=== PATIENT | male | born 1935 | race Caucasian/White ===

== ENCOUNTER → 2018-05-28 08:19 | Outpatient (CLI) | payer OTHER, SELFPAY ==
[2018-05-28 10:25] LABS: Add Manual Diff / Slide Review NO; Basophils Percent Auto 0.5 % (0-2); Eosinophils Percent Auto 1.3 % (2-4); Hematocrit 36.5 % (41-53); Hemoglobin 12.5 g/dL (13.5-17.5); Lymphocytes Percent Auto 24.5 % (25-40); Mean Corpuscular HGB Conc 34.3 % (30-36); Mean Corpuscular Hemoglobin 30.2 PG (26-34); Mean Corpuscular Volume 88.2 fL (80-100); Monocytes Percent Auto 8.2 % (3-14); Neutrophils Absolute Auto 5500 /uL (3000-5900); Neutrophils Percent Auto 65.5 % (50-75); Platelet Count 290 X10^3/uL (150-400); Red Blood Cell Count 4.14 X10^6/uL (4.5-5.9); Red Cell Distribution Width 14.1 % (11.6-14.8); White Blood Cell Count 8.4 X10^3/uL (4.5-11.0)
[2018-05-28 10:41] LABS: Hemoglobin A1C% w Est Avg Glu 6.5 % (4.0-6.0)
[2018-05-28 10:44] LABS: Blood Urea Nitrogen 76 mg/dL (9-20); Calcium 9.9 mg/dL (8.4-10.2); Carbon Dioxide 33 mmol/L (22-32); Chloride 91 mmol/L (98-107); Estimated Glomerular Filt Rate 18.1 mL/min (>60); Glucose 109 mg/dL (80-110); HEMOLYSIS < 15 (0-50); Potassium 3.5 mmol/L (3.4-5.1); Sodium 140 mmol/L (137-145)
== END ==
PROVIDERS: Family Provider Family Medicine; PCP Family Medicine; Visit Provider Family Medicine
DX: E11.9 Type 2 diabetes mellitus without complications (principal)
CPT/HCPCS: 36415; 80048; 83036; 85025

== ENCOUNTER → 2018-07-11 09:22 | Outpatient (CLI) | payer OTHER, SELFPAY ==
[2018-07-11 10:53] LABS: Blood Urea Nitrogen 46 mg/dL (9-20); Calcium 9.6 mg/dL (8.4-10.2); Carbon Dioxide 29 mmol/L (22-32); Chloride 99 mmol/L (98-107); Estimated Glomerular Filt Rate 27.4 mL/min (>60); Glucose 205 mg/dL (80-110); HEMOLYSIS < 15 (0-50); Potassium 4.2 mmol/L (3.4-5.1); Sodium 141 mmol/L (137-145)
== END ==
PROVIDERS: PCP Family Medicine; Visit Provider Family Medicine
DX: E11.9 Type 2 diabetes mellitus without complications (principal)
CPT/HCPCS: 36415; 80048

== ENCOUNTER → 2018-10-08 11:02 | Outpatient (CLI) | payer OTHER, SELFPAY ==
[2018-10-08 12:33] LABS: Alanine Aminotransferase 14 IU/L (21-72); Albumin 4.4 g/dL (3.5-5.0); Albumin Globulin Ratio 1.5 (1.0-2.8); Alkaline Phosphatase 84 U/L (38-126); Aspartate Aminotransferase 20 IU/L (17-59); BUN Creatinine Ratio 17.8 (6-22); Bilirubin Total 0.4 mg/dL (0.2-1.3); Blood Urea Nitrogen 41 mg/dL (9-20); Calcium 9.4 mg/dL (8.4-10.2); Carbon Dioxide 30 mmol/L (22-32); Chloride 100 mmol/L (98-107); Estimated Glomerular Filt Rate 27.4 mL/min (>60); Globulin 2.9 g/dL (1.7-4.1); Glucose 73 mg/dL (80-110); HEMOLYSIS < 15 (0-50); Potassium 3.9 mmol/L (3.4-5.1); Sodium 143 mmol/L (137-145); Total Protein 7.3 g/dL (6.3-8.2)
[2018-10-08 18:10] LABS: Hemoglobin A1C% w Est Avg Glu 5.9 % (4.0-6.0)
== END ==
PROVIDERS: PCP Family Medicine; Visit Provider Family Medicine
DX: E11.9 Type 2 diabetes mellitus without complications (principal); N17.9 Acute kidney failure, unspecified
CPT/HCPCS: 36415; 80053; 83036

== ENCOUNTER → 2018-10-30 10:30 | Outpatient (CLI) | payer OTHER, SELFPAY ==
[2018-10-30 12:00] LABS: Hematocrit 36.2 % (41-53); Hemoglobin 12.3 g/dL (13.5-17.5); Mean Corpuscular HGB Conc 33.9 % (30-36); Mean Corpuscular Hemoglobin 29.8 PG (26-34); Mean Corpuscular Volume 87.9 fL (80-100); Platelet Count 334 X10^3/uL (150-400); Red Blood Cell Count 4.12 X10^6/uL (4.5-5.9); Red Cell Distribution Width 14.5 % (11.6-14.8); White Blood Cell Count 7.8 X10^3/uL (4.5-11.0)
[2018-10-30 12:13] LABS: Alanine Aminotransferase 16 IU/L (21-72); Albumin 4.4 g/dL (3.5-5.0); Albumin Globulin Ratio 1.5 (1.0-2.8); Alkaline Phosphatase 106 U/L (38-126); Aspartate Aminotransferase 16 IU/L (17-59); BUN Creatinine Ratio 17.3 (6-22); Bilirubin Total 0.3 mg/dL (0.2-1.3); Blood Urea Nitrogen 38 mg/dL (9-20); Calcium 9.5 mg/dL (8.4-10.2); Carbon Dioxide 27 mmol/L (22-32); Chloride 100 mmol/L (98-107); Estimated Glomerular Filt Rate 28.9 mL/min (>60); Globulin 2.9 g/dL (1.7-4.1); Glucose 156 mg/dL (80-110); HEMOLYSIS < 15 (0-50); Potassium 4.2 mmol/L (3.4-5.1); Sodium 143 mmol/L (137-145); Total Protein 7.3 g/dL (6.3-8.2)
== END ==
PROVIDERS: Family Provider Family Medicine; PCP Family Medicine; Visit Provider Family Medicine
DX: E11.9 Type 2 diabetes mellitus without complications (principal)
CPT/HCPCS: 36415; 80053; 83036; 85027

== ENCOUNTER → 2019-01-22 07:46 | Outpatient (CLI) | payer OTHER, SELFPAY ==
[2019-01-22 08:51] LABS: Add Manual Diff / Slide Review NO; Basophils Absolute Auto 0 /uL (0-100); Basophils Percent Auto 0.4 % (0-2); Eosinophils Absolute Auto 100 /uL (0-450); Eosinophils Percent Auto 1.7 % (2-4); Hematocrit 39.9 % (41-53); Hemoglobin 13.1 g/dL (13.5-17.5); Lymphocytes Absolute Auto 1500 /uL (1100-4500); Lymphocytes Percent Auto 19.8 % (25-40); Mean Corpuscular HGB Conc 32.9 % (30-36); Mean Corpuscular Hemoglobin 28.9 PG (26-34); Monocytes Absolute Auto 500 /uL (0-900); Monocytes Percent Auto 6.5 % (3-14); Neutrophils Absolute Auto 5200 /uL (1500-7000); Neutrophils Percent Auto 71.6 % (50-75); Platelet Count 258 X10^3/uL (150-400); Red Blood Cell Count 4.53 X10^6/uL (4.5-5.9); Red Cell Distribution Width 14.9 % (11.6-14.8); White Blood Cell Count 7.3 X10^3/uL (4.5-11.0)
[2019-01-22 09:01] LABS: Hemoglobin A1C% w Est Avg Glu 6.2 % (4.0-6.0)
[2019-01-22 09:29] LABS: Alanine Aminotransferase 22 IU/L (21-72); Albumin 4.3 g/dL (3.5-5.0); Albumin Globulin Ratio 1.5 (1.0-2.8); Alkaline Phosphatase 100 U/L (38-126); Aspartate Aminotransferase 15 IU/L (17-59); BUN Creatinine Ratio 20.5 (6-22); Bilirubin Total 0.5 mg/dL (0.2-1.3); Blood Urea Nitrogen 45 mg/dL (9-20); Calcium 9.7 mg/dL (8.4-10.2); Carbon Dioxide 28 mmol/L (22-32); Chloride 102 mmol/L (98-107); Estimated Glomerular Filt Rate 28.8 mL/min (>60); Globulin 2.8 g/dL (1.7-4.1); Glucose 149 mg/dL (80-110); HEMOLYSIS < 15 (0-50); Potassium 3.8 mmol/L (3.4-5.1); Sodium 141 mmol/L (137-145); Total Protein 7.1 g/dL (6.3-8.2)
== END ==
PROVIDERS: Family Provider Family Medicine; PCP Family Medicine; Visit Provider Family Medicine
DX: E11.9 Type 2 diabetes mellitus without complications (principal); I10 Essential (primary) hypertension; N18.3 Chronic kidney disease, stage 3 (moderate)
CPT/HCPCS: 36415; 80053; 83036; 85025

== ENCOUNTER → 2019-04-24 07:40 | Outpatient (CLI) | payer OTHER, SELFPAY ==
[2019-04-24 08:32] LABS: Hemoglobin A1C% w Est Avg Glu 6.1 % (4.0-6.0)
[2019-04-24 08:49] LABS: BUN Creatinine Ratio 20.8 (6-22); Blood Urea Nitrogen 52 mg/dL (9-20); Calcium 9.7 mg/dL (8.4-10.2); Carbon Dioxide 29 mmol/L (22-32); Chloride 102 mmol/L (98-107); Estimated Glomerular Filt Rate 24.8 mL/min (>60); Glucose 148 mg/dL (80-110); HEMOLYSIS < 15 (0-50); Sodium 141 mmol/L (137-145)
== END ==
PROVIDERS: PCP Family Medicine; Visit Provider Family Medicine
DX: E11.9 Type 2 diabetes mellitus without complications (principal)
CPT/HCPCS: 36415; 80048; 83036

== ENCOUNTER 2019-07-21 16:28 | Emergency (ER) | payer OTHER, SELFPAY ==
[2019-07-21 16:35] VITALS: BP 170/80; PULSE 60; RESP 21; TEMP 36.6; O2SAT 93
--- NOTE | 2019-07-21 16:35 | DI.RAD.S_ITS ---
PROCEDURE: XR CHEST 1V INDICATIONS: chest pain TECHNIQUE: One view of the chest was acquired. COMPARISON: [facility], CHEST 2 VIEW, 11/27/2015, 10:01. [facility], CHEST 1 VIEW, 09/25/2016, 11:39. [facility], CHEST 2 VIEW, 09/26/2016, 15:19. [facility], CHEST 1 VIEW, 11/13/2016, 1:33. FINDINGS: Surgical changes and devices: A pacer device is seen. The leads are seen in stable positions. Lungs and pleura: Lungs are clear. No pleural effusions or pneumothorax. Mediastinum: Mediastinal contours appear normal. Heart size is normal. Atherosclerotic calcification of the aortic arch is noted. Bones and chest wall: Age-appropriate bony degenerative changes are seen. No suspicious bony lesions. Overlying soft tissues appear unremarkable. IMPRESSION: Portable chest within normal limits. Postoperative and degenerative changes are seen. Dictated by: Juan Sequeira M.D. on 07/21/2019 at 16:09 Approved by: Juan Sequeira M.D. on 07/21/2019 at 16:10
[2019-07-21 16:42] LABS: Add Manual Diff / Slide Review NO; Basophils Absolute Auto 0 /uL (0-100); Basophils Percent Auto 0.4 % (0-2); Eosinophils Absolute Auto 200 /uL (0-450); Eosinophils Percent Auto 1.8 % (2-4); Hematocrit 40.7 % (41-53); Hemoglobin 13.8 g/dL (13.5-17.5); Lymphocytes Absolute Auto 2300 /uL (1100-4500); Lymphocytes Percent Auto 24.8 % (25-40); Mean Corpuscular HGB Conc 33.9 % (30-36); Mean Corpuscular Hemoglobin 29.9 PG (26-34); Mean Corpuscular Volume 88.2 fL (80-100); Monocytes Absolute Auto 600 /uL (0-900); Monocytes Percent Auto 6.6 % (3-14); Neutrophils Absolute Auto 6200 /uL (1500-7000); Neutrophils Percent Auto 66.4 % (50-75); Platelet Count 247 X10^3/uL (150-400); Red Blood Cell Count 4.62 X10^6/uL (4.5-5.9); Red Cell Distribution Width 14.5 % (11.6-14.8); White Blood Cell Count 9.3 X10^3/uL (4.5-11.0)
[2019-07-21 16:43] LABS: INR 0.9 (0.9-1.3); Prothrombin Time 10.8 SECONDS (10.1-12.7)
[2019-07-21 16:46] LABS: PTT Partial Thromboplastin Tim 35 SECONDS (26.4-36.2)
--- NOTE | 2019-07-21 16:59 | ED_ITS ---
HPI - Dizziness <Chey DamicoDENISE - Last Filed: 07/21/19 21:19> General Chief Complaint: Dizziness Stated Complaint: N/V, hx vertigo Time Seen by Provider: 07/21/19 16:36 Source: patient Mode of arrival: ambulatory Limitations: no limitations History of Present Illness HPI Narrative: 83-year-old male with history of a pacemaker, diabetes, dementia, CKD, and an inguinal hernia, presents emergency department today with his who states he started complaining of feeling ?like the room was moving ?last night. He had 1 episode of vomiting last night and has had multiple episodes of vomiting today. He currently lives at home with his who is his gis analyst developer. She states he has not been febrile, has not complained of abdominal pain, there has been no diarrhea, his mentation status has been baseline (AOx2), she states his speech has been baseline without slurred words, patient has been able to use all extremities without weakness to her knowledge, and she has not noticed any facial droop, he is able to follow commands, and she denies any recent falls in the past week. She states he has had an episode of vertigo in the past and he has exhibited similar symptoms. She denies any sick contacts. Patient is able to follow simple commands, he denies chest pain, shortness of breath, abdominal pain, or syncope. Related Data Home Medications Medication Instructions Recorded Confirmed CHOLECALCIFEROL (VITAMIN D3) 2,000 iu PO Q DAY #0 12/23/11 05/07/19 (Vitamin D) Fish Oil 1,000 mg PO QDAY #0 05/01/12 05/07/19 CA PANTOTHENATE/FOLIC ACID/VIT 1 tab PO QDAY #0 12/24/12 05/07/19 (MULTIVITAMIN) folic acid 400 mcg tablet 0.4 mg PO DAILY 06/12/18 05/07/19 Previous Rx's Medication Instructions Recorded Meclizine Hydrochloride 25 mg PO TIDP PRN #30 03/11/12 (#MECLIZINE) ramelteon 8 mg tablet 4 mg PO HS #20 tab 06/12/18 omeprazole 20 mg PO QDAY #30 cap 10/29/18 glucose home monitoring kit See Rx Instructions .ROUTE 11/05/18 .COMPLEX #1 each insulin NPH isoph U-100 human 100 20 unit SUBCUT QAM #15 ml 11/05/18 unit/mL (3 mL) subcutaneous pen needle (disp) 30 gauge 30 gauge x #100 each 11/05/18 1/2 lisinopril 20 mg PO BID #180 tab 12/10/18 One Touch Verio test strips See Rx Instructions .ROUTE 01/10/19 .COMPLEX #100 each lancets 33 gauge #100 each 01/10/19 furosemide 20 mg tablet 20 mg PO DAILY #90 tab 02/22/19 furosemide 40 mg PO QDAY #90 tab 03/18/19 tamsulosin 0.4 mg capsule 0.4 mg PO Q DAY #90 cap 04/25/19 DISABLED PARKING PERMIT #1 each 05/07/19 ondansetron HCl [Zofran] 4 mg PO Q8-12H PRN #7 tab 07/21/19 Allergies Allergy/AdvReac Type Severity Reaction Status Date / Time niacin Allergy Mild HOT Verified 07/21/19 16:40 FLASHES/REDNESS rosuvastatin Allergy Mild CRAMPS, Verified 07/21/19 16:40 DIARRHEA Review of Systems <DENISE Luna - Last Filed: 07/21/19 21:19> Review of Systems Narrative: REVIEW OF SYSTEMS: GENERAL: Denies fever. HENT: No head trauma. EYES: No loss of vision. CARDIOVASCULAR: No chest pain, palpitations, edema, or syncope. RESPIRATORY: No shortness of breath, cough, or wheeze. GASTROINTESTINAL: states patient vomited, see HPI. GENITOURINARY: No dysuria. MUSCULOSKELETAL: No pain, weakness, or deformities. INTEGUMENTARY: No rash, lesions, or pruritus. NEURO: No numbness, tingling, or headaches. No facial droop or weakness. Complains of vertigo, see HPI. PSYCH: No behavior or mood changes. PFSH <DENISE Luna - Last Filed: 07/21/19 21:19> Medical History BPH (benign prostatic hyperplasia) (Chronic) Cardiac arrhythmia (Chronic) Dementia (Chronic ~2012) Diabetes mellitus (Chronic) GERD (gastroesophageal reflux disease) (Chronic) Hearing loss (Chronic) Hyperlipidemia (Chronic) Hypertension (Chronic) Rheumatoid arthritis (Chronic) Vertigo (Chronic ~2010) Surgical History Anesthesia (Resolved) History of knee replacement (~2011) History of knee replacement (~2012) Presence of cardiac pacemaker (~2009) Status post tonsillectomy and adenoidectomy Family History Brother Alzheimer's disease Brother Heart disease Father Aneurysm Social History marital status: Smoking Status: Former smoker alcohol intake: never substance use type: does not use Family History Brother Alzheimer's disease Brother Heart disease Father Aneurysm Social History marital status: Smoking Status: Former smoker alcohol intake: never substance use type: does not use Exam <DENISE Luna - Last Filed: 07/21/19 21:19> Initial Vital Signs Initial Vital Signs: Vital Signs Temperature 97.9 F 07/21/19 16:35 Pulse Rate 60 07/21/19 16:35 Respiratory Rate 21 07/21/19 16:35 Blood Pressure 170/80 H 07/21/19 16:35 Pulse Oximetry 93 07/21/19 16:35 PHYSICAL EXAMINATION: GENERAL: Alert and oriented x2, patient is not able to recall the the date or situation but is able to identify his name and his . His states that this is his baseline. Vital signs noted. HENT: Normocephalic, atraumatic. Ear canals patent, tympanic membranes normal without irritation or effusion, crisp light reflex present. Oral mucosa is pink and moist, no caries or lesions present. Pharynx without erythema. EYES: PERRLA, EOMIs, conjunctiva pink, sclera white, no periorbital swelling. left-sided horizontal nystagmus noted 1 patient looked to his left. CARDIOVASCULAR: S1 and S2 heard. Significant murmur present, patient is paced. RESPIRATORY: Normal respiratory rate, trachea midline, airway patent. No stridor, nasal flaring or accessory muscle use. Lungs are clear in all soriano without wheeze, rhonchi, or crackles. GASTROINTESTINAL: Bowel sounds normoactive. Abdomen is soft and non-tender. No organomegaly. MUSCULOSKELETAL: Equal strength to upper extremities. Patient was able to ambulate normally after administration of meclizine and Zofran. EXTREMITIES: CMS intact. SKIN: Warm, dry, soft, appropriate color for ethnicity. No lesions, rashes, or wounds. NEURO: Alert and Oriented X 2. Patient was able to follow simple commands, states is his baseline. CN III-XII grossly intact. It was difficult to determine if the Brielle-Hallpike maneuver aggravated symptoms as patient was a fairly poor historian. NIH score of zero (other than decreased orientation status, but says this is his baseline.) PSYCH: Appropriate affect and mood. <Pablito Pradhan DO - Last Filed: 07/22/19 07:34> Initial Vital Signs Initial Vital Signs: Vital Signs Temperature 97.9 F 07/21/19 16:35 Pulse Rate 60 07/21/19 16:35 Respiratory Rate 21 07/21/19 16:35 Blood Pressure 170/80 H 07/21/19 16:35 Pulse Oximetry 93 07/21/19 16:35 Scores <DENISE Luna - Last Filed: 07/21/19 21:19> NIH Stroke Scale Level of Conciousness: Alert, keenly responsive Open/close eyes, close hand: Performs both tasks correctly Best gaze horizontal: Normal Visual soriano: No visual loss Facial palsy: Normal symetrical movement Left arm drift: No drift for full 10 sec Right arm drift: No drift for full 10 sec Left leg drift: No drift for full 10 sec Right leg drift: No drift for full 10 sec Limb ataxia: Absent Sensory on face/arms/legs: Normal, no sensory loss Best language: No aphasia, normal Dysarthria: Normal Extinction or inattention: No abnormality Course <DENISE Luna - Last Filed: 07/21/19 21:19> Course Course Narrative: After patient was given Zofran, fluids, and meclizine, he was significantly more alert and was able to ambulate without nausea or vomiting. His stated he is looking much better and they would like to go. Orders Ordered: Discontinued Medications Sodium Chloride (Normal Saline 0.9%) 1,000 mls @ 500 mls/hr IV BOLUS ONE Stop: 07/21/19 18:53 Last Infusion: 07/21/19 18:49 Dose: 0 mls/hr Documented by: Admin: 07/21/19 17:13 Dose: 500 mls/hr Documented by: BECK Meclizine HCl (Antivert) 25 mg PO NOW ONE Stop: 07/21/19 16:55 Last Admin: 07/21/19 17:14 Dose: 25 mg Documented by: BECK Ondansetron HCl (Zofran) 4 mg IV NOW ONE Stop: 07/21/19 16:55 Last Admin: 07/21/19 17:13 Dose: 4 mg Documented by: BECK Reevaluation(s) Reevaluation #1: Patient improved after medication as stated above. Consultations Consultation #1: Patient staffed with Dr. Pradhan. Vital Signs Vital signs: Vital Signs - 8 hr 07/21/19 16:35 07/21/19 17:30 07/21/19 19:07 Temperature 97.9 F Pulse Rate 60 60 60 Respiratory Rate 21 17 17 Blood Pressure 170/80 H 157/72 H Blood Pressure [Left Arm] 152/75 H Pulse Oximetry 93 95 <Pablito Pradhan, - Last Filed: 07/22/19 07:34> Orders Ordered: Discontinued Medications Sodium Chloride (Normal Saline 0.9%) 1,000 mls @ 500 mls/hr IV BOLUS ONE Stop: 07/21/19 18:53 Last Infusion: 07/21/19 18:49 Dose: 0 mls/hr Documented by: Admin: 07/21/19 17:13 Dose: 500 mls/hr Documented by: BECK Meclizine HCl (Antivert) 25 mg PO NOW ONE Stop: 07/21/19 16:55 Last Admin: 07/21/19 17:14 Dose: 25 mg Documented by: BECK Ondansetron HCl (Zofran) 4 mg IV NOW ONE Stop: 07/21/19 16:55 Last Admin: 07/21/19 17:13 Dose: 4 mg Documented by: BECK Vital Signs Vital signs: Vital Signs - 8 hr 07/21/19 16:35 07/21/19 17:30 07/21/19 19:07 Temperature 97.9 F Pulse Rate 60 60 60 Respiratory Rate 21 17 17 Blood Pressure 170/80 H 157/72 H Blood Pressure [Left Arm] 152/75 H Pulse Oximetry 93 95 MDM - Dizziness <Chey Damico TIMBER TREATING TANK OPERATOR - Last Filed: 07/21/19 21:19> Medical Records Attestation: I reviewed the patient's medical records. Lab Data Attestation: I reviewed the patient's lab results. Result diagrams: 07/21/19 16:30 07/21/19 16:30 Labs: Lab Results 07/21/19 07/21/19 07/21/19 Range/Units 16:30 16:30 16:30 WBC 9.3 (4.5-11.0) X10^3/uL RBC 4.62 (4.5-5.9) X10^6/uL Hgb 13.8 (13.5-17.5) g/dL Hct 40.7 L (41-53) % MCV 88.2 (80-100) fL MCH 29.9 (26-34) PG MCHC 33.9 (30-36) % RDW 14.5 (11.6-14.8) % Plt Count 247 (150-400) X10^3/uL Neut % (Auto) 66.4 (50-75) % Lymph % (Auto) 24.8 L (25-40) % Donley % (Auto) 6.6 (3-14) % Eos % (Auto) 1.8 L (2-4) % Baso % (Auto) 0.4 (0-2) % Neut # (Auto) 6200 (2888-9468) /uL Lymph # (Auto) 2300 (0407-8336) /uL Donley # (Auto) 600 (0-900) /uL Eos # (Auto) 200 (0-450) /uL Baso # (Auto) 0 (0-100) /uL PT 10.8 (10.1-12.7) SECONDS INR 0.9 (0.9-1.3) APTT 35 (26.4-36.2) SECONDS Sodium 143 (137-145) mmol/L Potassium 3.3 L (3.4-5.1) mmol/L Chloride 104 (98-107) mmol/L Carbon Dioxide 23 (22-32) mmol/L BUN 45 H (9-20) mg/dL Creatinine 2.20 H (0.66-1.25) mg/dL Estimated GFR 28.8 L (>60) mL/min BUN/Creatinine Ratio 20.5 (6-22) Glucose 117 H (80-110) mg/dL Calcium 9.3 (8.4-10.2) mg/dL Total Bilirubin 0.5 (0.2-1.3) mg/dL AST 19 (17-59) IU/L ALT 9 L (21-72) IU/L Alkaline Phosphatase 128 H (38-126) U/L Total Creatine Kinase 29 L (55-170) U/L CK-MB (CK-2) TNP CK-MB (CK-2) Rel Index TNP Troponin I < 0.012 (0.01-0.034) ng/mL Total Protein 7.5 (6.3-8.2) g/dL Albumin 4.4 (3.5-5.0) g/dL Globulin 3.1 (1.7-4.1) g/dL Albumin/Globulin Ratio 1.4 (1.0-2.8) Lipase 40 (23-300) U/L Imaging Data Chest x-ray: Radiologist's impression: [place] [address] XRay Report Signed Patient: Harpal Lezama RMR#: [id number] : 6Acct:[id number] Age/Sex: 83 / MDate of Service: 07/21/19 Loc: ED Accession Number: [id number] Procedure: XR chest 1V Ordering Provider: Pablito Pradhan D.O. PROCEDURE: XR CHEST 1V INDICATIONS: chest pain TECHNIQUE: One view of the chest was acquired. COMPARISON: [facility], CHEST 2 VIEW, 11/27/2015, 10:01. [facility], CHEST 1 VIEW, 09/25/2016, 11:39. [facility], CHEST 2 VIEW, 09/26/2016, 15:19. [facility], CHEST 1 VIEW, 11/13/2016, 1:33. FINDINGS: Surgical changes and devices: A pacer device is seen. The leads are seen in stable positions. Lungs and pleura: Lungs are clear. No pleural effusions or pneumothorax. Mediastinum: Mediastinal contours appear normal. Heart size is normal. Atherosclerotic calcification of the aortic arch is noted. Bones and chest wall: Age-appropriate bony degenerative changes are seen. No suspicious bony lesions. Overlying soft tissues appear unremarkable. IMPRESSION: Portable chest within normal limits. Postoperative and degenerative changes are seen. Dictated by: Juan Sequeira M.D. on 07/21/2019 at 16:09 Approved by: Juan Sequeira M.D. on 07/21/2019 at 16:10 ECG Data Interpretation: Paced rhythm noted on EKG. Rate 61, pr interval 180, QTC 529. Wide QRS complexes noted, no ST elevation present. EKG was also viewed by Dr. Pradhan. MDM Narrative Medical decision making narrative: Differential includes vertigo (most likely as patient's symptoms resolved completely after administration of medication, reassuring lab, no significant changes were visible on the EKG, NIH score of 0), stroke (less likely due to NIH score of 0, resolution of symptoms, lack of weakness, lack of other concerning symptoms), cardiac disease (less likely due to negative troponin, lack of change in the EKG, and the fact that patient has a pacemaker issues like bradycardia), or gastroenteritis. Very strict return precautions were given to his who is his competent caregiver. Follow-up instructions discussed. <Pablito Pradhan, DO - Last Filed: 07/22/19 07:34> Lab Data Labs: Lab Results 07/21/19 07/21/19 07/21/19 Range/Units 16:30 16:30 16:30 WBC 9.3 (4.5-11.0) X10^3/uL RBC 4.62 (4.5-5.9) X10^6/uL Hgb 13.8 (13.5-17.5) g/dL Hct 40.7 L (41-53) % MCV 88.2 (80-100) fL MCH 29.9 (26-34) PG MCHC 33.9 (30-36) % RDW 14.5 (11.6-14.8) % Plt Count 247 (150-400) X10^3/uL Neut % (Auto) 66.4 (50-75) % Lymph % (Auto) 24.8 L (25-40) % Donley % (Auto) 6.6 (3-14) % Eos % (Auto) 1.8 L (2-4) % Baso % (Auto) 0.4 (0-2) % Neut # (Auto) 6200 (9993-2529) /uL Lymph # (Auto) 2300 (5845-3903) /uL Donley # (Auto) 600 (0-900) /uL Eos # (Auto) 200 (0-450) /uL Baso # (Auto) 0 (0-100) /uL PT 10.8 (10.1-12.7) SECONDS INR 0.9 (0.9-1.3) APTT 35 (26.4-36.2) SECONDS Sodium 143 (137-145) mmol/L Potassium 3.3 L (3.4-5.1) mmol/L Chloride 104 (98-107) mmol/L Carbon Dioxide 23 (22-32) mmol/L BUN 45 H (9-20) mg/dL Creatinine 2.20 H (0.66-1.25) mg/dL Estimated GFR 28.8 L (>60) mL/min BUN/Creatinine Ratio 20.5 (6-22) Glucose 117 H (80-110) mg/dL Calcium 9.3 (8.4-10.2) mg/dL Total Bilirubin 0.5 (0.2-1.3) mg/dL AST 19 (17-59) IU/L ALT 9 L (21-72) IU/L Alkaline Phosphatase 128 H (38-126) U/L Total Creatine Kinase 29 L (55-170) U/L CK-MB (CK-2) TNP CK-MB (CK-2) Rel Index TNP Troponin I < 0.012 (0.01-0.034) ng/mL Total Protein 7.5 (6.3-8.2) g/dL Albumin 4.4 (3.5-5.0) g/dL Globulin 3.1 (1.7-4.1) g/dL Albumin/Globulin Ratio 1.4 (1.0-2.8) Lipase 40 (23-300) U/L Discharge Plan Departure Patient Disposition: Home Clinical Impression: Nausea, Vertigo Discharge Date/Time: 07/21/19 19:08 Instructions: DI for Vertigo Activity Restrictions/Additional Instructions: Thank you for entrusting me with your care today. As discussed, your lab work is negative for any concerning findings. It is possible that the dizziness and vomiting may be caused by vertigo. I prescribed you a medication to take for the next few days in case vomiting occurs again. Please follow-up with her primary care provider in the next week. Return to the emergency department if he develops facial droop, slurred speech, chest pain, uncontrollable vomiting, shortness of breath, abdominal pain, or other concerning symptoms. Prescriptions: New ondansetron HCl [Zofran] 4 mg tablet 4 mg PO Q8-12H PRN (Reason: nausea and vomiting) Qty: 7 RF: 0 No Action (DME) DISABLED PARKING PERMIT 0 .ROUTE .MEDSUPPLY Qty: 1 RF: 0 CHOLECALCIFEROL (VITAMIN D3) (Vitamin D) 2,000 iu PO Q DAY Qty: 0 RF: 0 Meclizine Hydrochloride (#MECLIZINE) 25 mg PO TIDP PRNQty: 30 RF: 1 Fish Oil 1,000 mg PO QDAY Qty: 0 RF: 0 CA PANTOTHENATE/FOLIC ACID/VIT (MULTIVITAMIN) 1 tab PO QDAY Qty: 0 RF: 0 omeprazole 20 mg capsule,delayed release(DR/EC) 20 mg PO QDAY Qty: 30 RF: 11 insulin NPH isoph U-100 human [Humulin N NPH Insulin KwikPen] 100 unit/mL (3 mL) insulin pen 20 unit SUBCUT QAM Qty: 15 RF: 3 (DME) needle (disp) 30 gauge [BD Specialty Use [place]] 30 gauge x 1/2 needle See Dose Instructions .ROUTE .MEDSUPPLY Qty: 100 RF: 5 lisinopril 20 mg tablet 20 mg PO BID Qty: 180 RF: 3 (DME) lancets [OneTouch Delica Lancets] 33 gauge misc See Dose Instructions .ROUTE .MEDSUPPLY Qty: 100 RF: 3 One Touch Verio test strips See Rx Instructions .ROUTE .COMPLEX Qty: 100 RF: 5 furosemide 20 mg tablet 20 mg PO DAILY Qty: 90 RF: 0 furosemide 40 mg tablet 40 mg PO QDAY Qty: 90 RF: 3 tamsulosin [Flomax] 0.4 mg capsule 0.4 mg PO Q DAY Qty: 90 RF: 3 glucose home monitoring kit See Rx Instructions .ROUTE .COMPLEX Qty: 1 RF: 0 folic acid 400 mcg tablet 0.4 mg PO DAILY RF: 0 ramelteon [Rozerem] 8 mg tablet 4 mg PO HS Qty: 20 RF: 3 Referrals: Tobi Sheldon MD [Primary Care Provider] - <Pablito Pradhan DO - Last Filed: 07/22/19 07:34> Sign Out Provider Sign Out Attestation: I was available for consultation during this patient's emergency department encounter
[2019-07-21 17:02] LABS: Alanine Aminotransferase 9 IU/L (21-72); Albumin 4.4 g/dL (3.5-5.0); Albumin Globulin Ratio 1.4 (1.0-2.8); Alkaline Phosphatase 128 U/L (38-126); Aspartate Aminotransferase 19 IU/L (17-59); BUN Creatinine Ratio 20.5 (6-22); Bilirubin Total 0.5 mg/dL (0.2-1.3); Blood Urea Nitrogen 45 mg/dL (9-20); Calcium 9.3 mg/dL (8.4-10.2); Carbon Dioxide 23 mmol/L (22-32); Chloride 104 mmol/L (98-107); Creatine Kinase 29 U/L (55-170); Estimated Glomerular Filt Rate 28.8 mL/min (>60); Globulin 3.1 g/dL (1.7-4.1); Glucose 117 mg/dL (80-110); HEMOLYSIS 25 (0-50); Lipase 40 U/L (23-300); Potassium 3.3 mmol/L (3.4-5.1); Sodium 143 mmol/L (137-145); Total Protein 7.5 g/dL (6.3-8.2)
[2019-07-21 17:13] LABS: Troponin I < 0.012 ng/mL (0.01-0.034)
[2019-07-21] MEDS: SODIUM CHLORIDE 0.9% 1,000 ML 500 ML IV (17:13)
[2019-07-21] MEDS: ONDANSETRON 4 MG/2 ML INJ IV (17:13)
[2019-07-21] MEDS: MECLIZINE HCL 12.5 MG TABLET 25 MG PO (17:14)
[2019-07-21 17:30] VITALS: BP 152/75; PULSE 60; RESP 17
[2019-07-21 19:07] VITALS: BP 157/72; PULSE 60; RESP 17; O2SAT 95
== END 2019-07-21 19:08 | disposition home or self-care (01) ==
PROVIDERS: Emergency Medicine; Emergency Provider Nurse Practitioner; PCP Family Medicine
DX: R42 Dizziness and giddiness (principal); R11.0 Nausea
CPT/HCPCS: 36591; 71045; 80053; 82550; 83690; 84484; 85025; 85610; 85730; 93005; 96361; 96374; 99283; 99285; J2405

== ENCOUNTER → 2019-10-22 08:14 | Outpatient (CLI) | payer OTHER, SELFPAY ==
[2019-10-22 09:45] LABS: Hemoglobin 13.2 g/dL (13.5-17.5); Mean Corpuscular HGB Conc 33.7 % (30-36); Mean Corpuscular Hemoglobin 29.7 PG (26-34); Mean Corpuscular Volume 88.1 fL (80-100); Platelet Count 235 X10^3/uL (150-400); Red Blood Cell Count 4.43 X10^6/uL (4.5-5.9); Red Cell Distribution Width 14.2 % (11.6-14.8); White Blood Cell Count 6.8 X10^3/uL (4.5-11.0)
[2019-10-22 10:11] LABS: Alanine Aminotransferase 11 IU/L (<50); Albumin 4.1 g/dL (3.5-5.0); Albumin Globulin Ratio 1.5 (1.0-2.8); Alkaline Phosphatase 111 U/L (38-126); Aspartate Aminotransferase 17 IU/L (17-59); BUN Creatinine Ratio 18.2 (6-22); Bilirubin Total 0.7 mg/dL (0.2-1.3); Blood Urea Nitrogen 40 mg/dL (9-20); Calcium 9.2 mg/dL (8.4-10.2); Carbon Dioxide 26 mmol/L (22-32); Chloride 105 mmol/L (98-107); Cholesterol 219 mg/dL (140-199); Estimated Glomerular Filt Rate 28.8 mL/min (>60); Globulin 2.8 g/dL (1.7-4.1); Glucose 133 mg/dL (80-110); HDL Cholesterol 22 mg/dL (40-60); HEMOLYSIS < 15 (0-50); LDL Cholesterol Calculated 143 mg/dL (<100); Potassium 3.8 mmol/L (3.4-5.1); Sodium 140 mmol/L (137-145); Total Protein 6.9 g/dL (6.3-8.2); Triglycerides 268 mg/dL (35-150)
[2019-10-22 10:25] LABS: Neutrophils Absolute Manual 4556 /uL (3000-5900); Total Cells Counted 100
[2019-10-22 10:26] LABS: RBC Morphology Normal Morphology
[2019-10-22 10:40] LABS: TSH w/ Reflex to FT4 0.49 uIU/mL (0.47-4.68)
== END ==
PROVIDERS: PCP Family Medicine; Visit Provider Family Medicine
DX: E11.9 Type 2 diabetes mellitus without complications (principal); I10 Essential (primary) hypertension; N18.3 Chronic kidney disease, stage 3 (moderate)
CPT/HCPCS: 36415; 80053; 80061; 84443; 85025

== ENCOUNTER 2020-03-26 20:43 | Emergency (ER) | payer OTHER, SELFPAY ==
[2020-03-26 20:43] VITALS: BP 169/85; PULSE 61; RESP 14; O2SAT 95; BMI 27.3
--- NOTE | 2020-03-26 20:44 | DI.RAD.S_ITS ---
PROCEDURE: XR ACUTE ABDOMEN SERIES INDICATIONS: Abdominal pain, vomiting TECHNIQUE: One view chest and two views of the abdomen were acquired. COMPARISON: None. FINDINGS: Surgical changes and devices: Left pacemaker with right atrial and right ventricular leads. Chest: Lungs are clear. Heart size is normal. No pleural effusions. No obvious pneumoperitoneum. Abdomen: Large volume of stool in the rectal vault. Increased stool in other portions of the colon. No dilated loops of small bowel identified. No suspicious calcifications. Bones: No suspicious bony lesions. IMPRESSION: 1. No acute cardiopulmonary abnormality. 2. Large volume of stool, particularly at the rectal vault. This could be seen in fecal impaction. Dictated by: Rayo Carlson M.D. on 03/26/2020 at 22:07 Approved by: Rayo Carlson M.D. on 03/26/2020 at 22:09
--- NOTE | 2020-03-26 20:46 | ED_ITS ---
HPI - Nausea/Vomiting/Diarrhea General Chief complaint: Nausea/Vomiting/Diarrhea Stated complaint: Nausea/Vomiting Time Seen by Provider: 03/26/20 20:43 Source: family and EMS Mode of arrival: EMS Limitations: no limitations History of Present Illness HPI Narrative: 84-year-old male former smoker with history of pacemaker and dementia presents by EMS due to multiple episodes of vomiting earlier today. The patient has dementia and lives at home with his and had multiple episodes of vomiting today, largely triggered by change in position. He did not have any reported abdominal pain nor dysuria, frequency or urgency. He has had no fever or chills. He has had episodes of vomiting associated with vertigo in the past. He has had no recent injuries or falls. He has had no recent changes in medications. Patient is a very poor historian and much of the story comes from his Related Data Home Medications Medication Instructions Recorded Confirmed CHOLECALCIFEROL (VITAMIN D3) 2,000 iu PO Q DAY #0 12/23/11 11/06/19 (Vitamin D) Fish Oil 1,000 mg PO QDAY #0 05/01/12 11/06/19 CA PANTOTHENATE/FOLIC ACID/VIT 1 tab PO QDAY #0 12/24/12 11/06/19 (MULTIVITAMIN) folic acid 400 mcg tablet 0.4 mg PO DAILY 06/12/18 11/06/19 Previous Rx's Medication Instructions Recorded glucose home monitoring kit See Rx Instructions .ROUTE 11/05/18 .COMPLEX #1 each One Touch Verio test strips See Rx Instructions .ROUTE 01/10/19 .COMPLEX #100 each tamsulosin 0.4 mg capsule 0.4 mg PO Q DAY #90 cap 04/25/19 DISABLED PARKING PERMIT #1 each 05/07/19 insulin NPH isoph U-100 human 100 See Rx Instructions .ROUTE 09/02/19 unit/mL (3 mL) subcutaneous pen .COMPLEX #15 milliliter omeprazole 20 mg capsule,delayed See Rx Instructions .ROUTE 10/18/19 release .COMPLEX #90 cap lisinopril 20 mg tablet See Rx Instructions .ROUTE 12/03/19 .COMPLEX #180 tablet meclizine 25 mg tablet 25 mg PO TID PRN #30 each 12/24/19 lancets 33 gauge #100 each 02/13/20 needle (disp) 30 gauge 30 gauge x #100 each 02/13/20 1/2 potassium chloride 20 mEq 20 meq PO DAILY #30 tab 03/03/20 tablet,extended release furosemide 40 mg tablet 40 mg PO QDAY #90 tab 03/23/20 Allergies Allergy/AdvReac Type Severity Reaction Status Date / Time niacin Allergy Mild HOT Verified 03/26/20 20:43 FLASHES/REDNESS rosuvastatin Allergy Mild CRAMPS, Verified 03/26/20 20:43 DIARRHEA Review of Systems Constitutional Constitutional: Denies chills, Denies fatigue, Denies fever(s), Denies frequent falls, Denies lethargy and Denies weakness Eyes Eyes: Denies change in vision, Denies eye discharge, Denies irritation and Denies loss of vision ENT Ears, Nose, Mouth, and Throat: Denies change in voice, Denies dizziness, Denies neck pain, Denies sore throat and Denies throat swelling Cardiovascular Cardiovascular: Denies chest pain, Denies irregular heart rhythm, Denies lightheadedness, Denies palpitations, Denies dyspnea, Denies dyspnea on exertion and Denies orthopnea Respiratory Respiratory: Denies cough, Denies dyspnea, Denies dyspnea on exertion and Denies wheezing Gastrointestinal Gastrointestinal: Denies abdominal pain, Denies change in bowel habits, Denies diarrhea, Reports nausea and Reports vomiting Genitourinary Genitourinary: Denies hematuria, Denies flank pain, Denies urinary incontinence and Denies urinary urgency Musculoskeletal Musculoskeletal: Denies back pain, Denies muscle weakness, Denies neck pain, Denies numbness and Denies tingling Integumentary/Breasts Skin/Breast: Denies pruritus, Denies erythema, Denies rash and Denies wounds Neurologic Neurologic: Denies behavioral changes, Denies confusion, Denies dizziness, Denies frequent falls, Denies loss of vision, Denies numbness, Denies tingling and Denies weakness Psychiatric Psychiatric: Denies anxiety, Denies behavioral changes, Denies confusion, Denies depression, Denies homicidal ideation and Denies suicidal ideation Endocrine Endocrine: Denies fatigue, Denies flushing and Denies palpitations Hematologic/Lymphatic Hematologic/Lymphatic: Denies easy bruising Allergic/Immunologic Allergic/Immunologic: Denies urticaria, Denies throat swelling and Denies wheezing Patient History Medical History BPH (benign prostatic hyperplasia) (Chronic) Cardiac arrhythmia (Chronic) Dementia (Chronic ~2013) Diabetes mellitus (Chronic) GERD (gastroesophageal reflux disease) (Chronic) Hearing loss (Chronic) Hyperlipidemia (Chronic) Hypertension (Chronic) Rheumatoid arthritis (Chronic) Vertigo (Chronic ~2010) Surgical History Anesthesia (Resolved) History of knee replacement (~2011) History of knee replacement (~2012) Presence of cardiac pacemaker (~2009) Status post tonsillectomy and adenoidectomy Family History Brother Alzheimer's disease Brother Heart disease Father Aneurysm Social History marital status: Smoking Status: Former smoker alcohol intake: never substance use type: does not use Smoking Status: Former smoker alcohol intake frequency: 0-2 drinks per day Substance Use Type: does not use Exam Narrative Exam Narrative: GENERAL: [84] year old patient appears stated age. Well-nourish ed, well-developed patient, in mild distress. Confused. Baseline per HEAD: Atraumatic. Normocephalic. EYES: Pupils equal round and reactive. Extraocular motions intact. No scleral icterus. No injection or drainage. ENT: Nose without bleeding, purulent drainage. Throat without erythema, tonsil lar hypertrophy or exudate. Airway patent. NECK: Trachea midline. Non tender CARDIOVASCULAR: Regular rate and rhythm without murmurs, gallops, or rubs. RESPIRATORY: Clear to auscultation. Breath sounds equal bilaterally. No wheezes, rales, or rhonchi. GASTROINTESTINAL: Abdomen soft, non-tender, nondistended. RECTAL: soft stool high in vault. No pain. or blood EXTREMITIES: No edema or joint tenderness. BACK: Nontender without deformity or crepitance. No flank tenderness. SKIN: No rash or erythema of visible areas Initial Vital Signs Initial Vital Signs: Vital Signs Pulse Rate 61 03/26/20 20:43 Respiratory Rate 14 03/26/20 20:43 Blood Pressure 169/85 H 03/26/20 20:43 Pulse Oximetry 95 03/26/20 20:43 Course Course Course Narrative: patient observed for quite some time, no on going vomiting. Noo abdominal pain. Ambulates through department without difficulty. here for majority of visit. Return precautions given. Questions answered to her apparent satisfaction. Orders Ordered: ED Orders 03/26/20 22:21 CT abdomen pelvis w con Stat 03/27/20 00:01 Urine Culture Stat Urine Microscopic Stat Discontinued Medications Sodium Chloride (Normal Saline 0.9%) 1,000 mls @ 500 mls/hr IV BOLUS ONE Stop: 03/26/20 22:41 Last Admin: 03/26/20 21:00 Dose: Not Given Documented by: SCANAPO Sodium Chloride (Normal Saline 0.9%) 1,000 mls @ 150 mls/hr IV CONT ONE Stop: 03/27/20 03:21 Last Admin: 03/26/20 21:02 Dose: Not Given Documented by: SCANAPO Sodium Chloride (Normal Saline 0.9%) 1,000 mls @ 1,000 mls/hr IV BOLUS ONE Stop: 03/26/20 21:42 Last Infusion: 03/26/20 22:00 Dose: 0 mls/hr Documented by: Admin: 03/26/20 20:59 Dose: 1,000 mls/hr Documented by: SCANAPO Ondansetron HCl (Zofran) 4 mg IV NOW ONE Stop: 03/26/20 20:43 Last Admin: 03/26/20 20:59 Dose: 4 mg Documented by: SCANAPO Ondansetron HCl (Zofran) 4 mg IV Q4HR PRN PRN Reason: Nausea And Vomiting Ondansetron HCl (Zofran Odt Prepack) 1 bottle MISC SEEINSTR ONE Stop: 03/27/20 02:32 Last Admin: 03/27/20 02:40 Dose: 1 bottle Documented by: MMCFARL Pantoprazole Sodium (Protonix) 40 mg IV NOW ONE Stop: 03/26/20 20:44 Last Admin: 03/26/20 20:59 Dose: 40 mg Documented by: SCANAPO Sodium Biphosphate/Sodium Phosphate (Fleet Enema) 1 each VT NOW ONE Stop: 03/27/20 02:03 Vital Signs Vital signs: Vital Signs - 8 hr 03/27/20 01:30 03/27/20 02:40 Pulse Rate 71 72 Respiratory Rate 25 H 23 Blood Pressure 158/81 H Blood Pressure [Right Arm] 133/66 Pulse Oximetry 94 99 MDM - Nausea/Vomiting/Diarrhea Lab Data Result diagrams: 03/26/20 20:48 03/26/20 20:48 Labs: Lab Results 03/26/20 03/26/20 03/26/20 Range/Units 20:48 20:48 20:48 WBC 7.9 (4.5-11.0) X10^3/uL RBC 4.87 (4.5-5.9) X10^6/uL Hgb 14.5 (13.5-17.5) g/dL Hct 43.5 (41-53) % MCV 89.4 (80-100) fL MCH 29.9 (26-34) PG MCHC 33.4 (30-36) % RDW 14.8 (11.6-14.8) % Plt Count 258 (150-400) X10^3/uL Neut % (Auto) 72.2 (50-75) % Lymph % (Auto) 18.9 L (25-40) % [place] % (Auto) 6.2 (3-14) % Eos % (Auto) 2.2 (2-4) % Baso % (Auto) 0.5 (0-2) % Neut # (Auto) 5700 (4900-0518) /uL Lymph # (Auto) 1500 (8583-8308) /uL [place] # (Auto) 500 (0-900) /uL Eos # (Auto) 200 (0-450) /uL Baso # (Auto) 0 (0-100) /uL VBG pH (7.33-7.43) VBG pCO2 (45-50) mmHg VBG pO2 (35-45) mmHg VBG HCO3 (23-28) mmol/L VBG Total CO2 (24-29) mmol/L VBG O2 Saturation (70-75) % VBG Base Excess (0-4) mmol/L Sodium 141 (137-145) mmol/L Potassium 4.1 (3.4-5.1) mmol/L Chloride 104 (98-107) mmol/L Carbon Dioxide 22 (22-32) mmol/L BUN 42 H (9-20) mg/dL Creatinine 2.10 H (0.66-1.25) mg/dL Estimated GFR 30.3 L (>60) mL/min BUN/Creatinine Ratio 20.0 (6-22) Glucose 116 H (80-110) mg/dL Calcium 9.8 (8.4-10.2) mg/dL Ferritin (18-464) ng/mL Total Bilirubin 0.6 (0.2-1.3) mg/dL AST 23 (17-59) IU/L ALT 10 (<50) IU/L Alkaline Phosphatase 123 (38-126) U/L Total Creatine Kinase (55-170) U/L CK-MB (CK-2) CK-MB (CK-2) Rel Index Troponin I (0.01-0.034) ng/mL C-Reactive Protein < 0.5 (<1.0) mg/dL NT-Pro-B Natriuret Pep 936 H (<450) pg/mL Total Protein 8.2 (6.3-8.2) g/dL Albumin 4.7 (3.5-5.0) g/dL Globulin 3.5 (1.7-4.1) g/dL Albumin/Globulin Ratio 1.3 (1.0-2.8) Lipase (23-300) U/L Urine RBC (0-5/HPF) Urine WBC (0-5/HPF) Urine Bacteria (None) Ur Culture Indicated? Ketones (<0.27) mmol/L 03/26/20 03/26/20 03/26/20 Range/Units 20:48 20:48 20:54 WBC (4.5-11.0) X10^3/uL RBC (4.5-5.9) X10^6/uL Hgb (13.5-17.5) g/dL Hct (41-53) % MCV (80-100) fL MCH (26-34) PG MCHC (30-36) % RDW (11.6-14.8) % Plt Count (150-400) X10^3/uL Neut % (Auto) (50-75) % Lymph % (Auto) (25-40) % [place] % (Auto) (3-14) % Eos % (Auto) (2-4) % Baso % (Auto) (0-2) % Neut # (Auto) (9988-8875) /uL Lymph # (Auto) (8719-6652) /uL [place] # (Auto) (0-900) /uL Eos # (Auto) (0-450) /uL Baso # (Auto) (0-100) /uL VBG pH 7.39 (7.33-7.43) VBG pCO2 43.7 L (45-50) mmHg VBG pO2 46 H (35-45) mmHg VBG HCO3 26 (23-28) mmol/L VBG Total CO2 28 (24-29) mmol/L VBG O2 Saturation 81 H (70-75) % VBG Base Excess 1.0 (0-4) mmol/L Sodium (137-145) mmol/L Potassium (3.4-5.1) mmol/L Chloride (98-107) mmol/L Carbon Dioxide (22-32) mmol/L BUN (9-20) mg/dL Creatinine (0.66-1.25) mg/dL Estimated GFR (>60) mL/min BUN/Creatinine Ratio (6-22) Glucose (80-110) mg/dL Calcium (8.4-10.2) mg/dL Ferritin 85 (18-464) ng/mL Total Bilirubin (0.2-1.3) mg/dL AST (17-59) IU/L ALT (<50) IU/L Alkaline Phosphatase (38-126) U/L Total Creatine Kinase 28 L (55-170) U/L CK-MB (CK-2) TNP CK-MB (CK-2) Rel Index TNP Troponin I < 0.012 (0.01-0.034) ng/mL C-Reactive Protein (<1.0) mg/dL NT-Pro-B Natriuret Pep (<450) pg/mL Total Protein (6.3-8.2) g/dL Albumin (3.5-5.0) g/dL Globulin (1.7-4.1) g/dL Albumin/Globulin Ratio (1.0-2.8) Lipase 42 (23-300) U/L Urine RBC (0-5/HPF) Urine WBC (0-5/HPF) Urine Bacteria (None) Ur Culture Indicated? Ketones 0.08 (<0.27) mmol/L 03/27/20 Range/Units 00:01 WBC (4.5-11.0) X10^3/uL RBC (4.5-5.9) X10^6/uL Hgb (13.5-17.5) g/dL Hct (41-53) % MCV (80-100) fL MCH (26-34) PG MCHC (30-36) % RDW (11.6-14.8) % Plt Count (150-400) X10^3/uL Neut % (Auto) (50-75) % Lymph % (Auto) (25-40) % [place] % (Auto) (3-14) % Eos % (Auto) (2-4) % Baso % (Auto) (0-2) % Neut # (Auto) (1757-8220) /uL Lymph # (Auto) (6001-2569) /uL [place] # (Auto) (0-900) /uL Eos # (Auto) (0-450) /uL Baso # (Auto) (0-100) /uL VBG pH (7.33-7.43) VBG pCO2 (45-50) mmHg VBG pO2 (35-45) mmHg VBG HCO3 (23-28) mmol/L VBG Total CO2 (24-29) mmol/L VBG O2 Saturation (70-75) % VBG Base Excess (0-4) mmol/L Sodium (137-145) mmol/L Potassium (3.4-5.1) mmol/L Chloride (98-107) mmol/L Carbon Dioxide (22-32) mmol/L BUN (9-20) mg/dL Creatinine (0.66-1.25) mg/dL Estimated GFR (>60) mL/min BUN/Creatinine Ratio (6-22) Glucose (80-110) mg/dL Calcium (8.4-10.2) mg/dL Ferritin (18-464) ng/mL Total Bilirubin (0.2-1.3) mg/dL AST (17-59) IU/L ALT (<50) IU/L Alkaline Phosphatase (38-126) U/L Total Creatine Kinase (55-170) U/L CK-MB (CK-2) CK-MB (CK-2) Rel Index Troponin I (0.01-0.034) ng/mL C-Reactive Protein (<1.0) mg/dL NT-Pro-B Natriuret Pep (<450) pg/mL Total Protein (6.3-8.2) g/dL Albumin (3.5-5.0) g/dL Globulin (1.7-4.1) g/dL Albumin/Globulin Ratio (1.0-2.8) Lipase (23-300) U/L Urine RBC 0-1/hpf (0-5/HPF) Urine WBC 10-30/hpf H (0-5/HPF) Urine Bacteria Few (2-10) H (None) Ur Culture Indicated? Specimen cultured Ketones (<0.27) mmol/L Urine Dip Bedside Urine Glucose Negative Bedside Urine Bilirubin - Negative Bedside Urine Ketone - Negative Urine Specific [place] 1.010 Bedside Urine Occult Blood +/- Bedside Urine pH 7.0 Bedside Urine Protein + 30 Bedside Urine Urobilinogen - Negative Bedside Urine Nitrite - Negative Bedside Urine Leukocytes +++ 500 Esterase Discharge Plan Departure Patient Disposition: Home Clinical Impression: Vomiting Qualifiers: Vomiting type: unspecified Vomiting Intractability: non-intractable Nausea presence: with nausea Qualified Code(s): R11.2 - Nausea with vomiting, unspecified Constipation Qualifiers: Constipation type: unspecified constipation type Qualified Code(s): K59.00 - Constipation, unspecified Discharge Date/Time: 03/27/20 02:40 Instructions: DI for Vomiting -- Adult Activity Restrictions/Additional Instructions: 1. Drink plenty of fluids with frequent small sips. 2. For the next 24 hours a clear liquid diet is advised. After that please employ a brat diet which would include bananas, rice, apples, toast. 3. Please take medications as directed. 4. Please follow-up with your doctor in the next 1-2 days. Call the office for an appointment. 5. Please return to the emergency Department for any worsening or persistent symptoms, such as increasing pain or fever. Prescriptions: No Action (DME) DISABLED PARKING PERMIT 0 .ROUTE .MEDSUPPLY Qty: 1 RF: 0 CHOLECALCIFEROL (VITAMIN D3) (Vitamin D) 2,000 iu PO Q DAY Qty: 0 RF: 0 Fish Oil 1,000 mg PO QDAY Qty: 0 RF: 0 CA PANTOTHENATE/FOLIC ACID/VIT (MULTIVITAMIN) 1 tab PO QDAY Qty: 0 RF: 0 One Touch Verio test strips See Rx Instructions .ROUTE .COMPLEX Qty: 100 RF: 5 tamsulosin [Flomax] 0.4 mg capsule 0.4 mg PO Q DAY Qty: 90 RF: 3 insulin NPH isoph U-100 human [Humulin N NPH Insulin KwikPen] 100 unit/mL (3 mL) insulin pen See Rx Instructions .ROUTE .COMPLEX Qty: 15 RF: 2 omeprazole 20 mg capsule,delayed release(DR/EC) See Rx Instructions .ROUTE .COMPLEX Qty: 90 RF: 1 lisinopril 20 mg tablet See Rx Instructions .ROUTE .COMPLEX Qty: 180 RF: 3 meclizine 25 mg tablet 25 mg PO TID PRN (Reason: dizziness) Qty: 30 RF: 11 (DME) lancets [OneTouch Delica Lancets] 33 gauge misc See Dose Instructions .ROUTE .MEDSUPPLY Qty: 100 RF: 3 (DME) BD Specialty Use [place] 30 gauge x 1/2 needle See Dose Instructions .ROUTE .MEDSUPPLY Qty: 100 RF: 5 potassium chloride 20 mEq tablet extended release 20 meq PO DAILY Qty: 30 RF: 11 furosemide 40 mg tablet 40 mg PO QDAY Qty: 90 RF: 3 glucose home monitoring kit See Rx Instructions .ROUTE .COMPLEX Qty: 1 RF: 0 folic acid 400 mcg tablet 0.4 mg PO DAILY RF: 0 Referrals: Tobi Sheldon MD [Primary Care Provider] -
--- NOTE | 2020-03-26 20:46 | PC.NURSE ---
pt states he has been sick all day. while on stretcher pt having intermittent episodes of burping, appearing like he may vomit. pt has dementia and is not a good historian.
[2020-03-26 20:53] LABS: Add Manual Diff / Slide Review NO; Basophils Absolute Auto 0 /uL (0-100); Basophils Percent Auto 0.5 % (0-2); Eosinophils Absolute Auto 200 /uL (0-450); Eosinophils Percent Auto 2.2 % (2-4); Hematocrit 43.5 % (41-53); Hemoglobin 14.5 g/dL (13.5-17.5); Lymphocytes Absolute Auto 1500 /uL (1100-4500); Lymphocytes Percent Auto 18.9 % (25-40); Mean Corpuscular HGB Conc 33.4 % (30-36); Mean Corpuscular Hemoglobin 29.9 PG (26-34); Mean Corpuscular Volume 89.4 fL (80-100); Monocytes Absolute Auto 500 /uL (0-900); Monocytes Percent Auto 6.2 % (3-14); Neutrophils Absolute Auto 5700 /uL (1500-7000); Neutrophils Percent Auto 72.2 % (50-75); Platelet Count 258 X10^3/uL (150-400); Red Blood Cell Count 4.87 X10^6/uL (4.5-5.9); Red Cell Distribution Width 14.8 % (11.6-14.8); White Blood Cell Count 7.9 X10^3/uL (4.5-11.0)
[2020-03-26] MEDS: ONDANSETRON 4 MG/2 ML INJ IV (20:59)
[2020-03-26] MEDS: SODIUM CHLORIDE 0.9% 1,000 ML 1000 ML IV (20:59)
[2020-03-26] MEDS: PANTOPRAZOLE 40 MG VIAL IV (20:59)
[2020-03-26 21:06] LABS: Creatine Kinase 28 U/L (55-170); Lipase 42 U/L (23-300)
[2020-03-26 21:20] LABS: Troponin I < 0.012 ng/mL (0.01-0.034)
[2020-03-26 21:23] LABS: HCO3 VBG 26 mmol/L (23-28); Oxygen Saturation VBG 81 % (70-75); PCO2 VBG 43.7 mmHg (45-50); PO2 VBG 46 mmHg (35-45); Total CO2 VBG 28 mmol/L (24-29); pH VBG 7.39 (7.33-7.43)
[2020-03-26 21:30] VITALS: BP 159/69; PULSE 60; RESP 17; O2SAT 97
[2020-03-26 21:40] LABS: Ketones (Beta-Hydroxybutyrate) 0.08 mmol/L (<0.27)
[2020-03-26 21:43] LABS: Ferritin 85 ng/mL (18-464)
[2020-03-26 21:48] LABS: NT-proBNP (BNP-Adult 18+) 936 pg/mL (<450)
[2020-03-26 21:49] LABS: Alanine Aminotransferase 10 IU/L (<50); Albumin 4.7 g/dL (3.5-5.0); Albumin Globulin Ratio 1.3 (1.0-2.8); Alkaline Phosphatase 123 U/L (38-126); Aspartate Aminotransferase 23 IU/L (17-59); Bilirubin Total 0.6 mg/dL (0.2-1.3); Blood Urea Nitrogen 42 mg/dL (9-20); Calcium 9.8 mg/dL (8.4-10.2); Carbon Dioxide 22 mmol/L (22-32); Chloride 104 mmol/L (98-107); Estimated Glomerular Filt Rate 30.3 mL/min (>60); Globulin 3.5 g/dL (1.7-4.1); Glucose 116 mg/dL (80-110); HEMOLYSIS 37 (0-50); Potassium 4.1 mmol/L (3.4-5.1); Sodium 141 mmol/L (137-145); Total Protein 8.2 g/dL (6.3-8.2)
[2020-03-26 21:50] LABS: C-Reactive Protein Quant < 0.5 mg/dL (<1.0)
[2020-03-26 22:00] VITALS: BP 153/71; PULSE 60; RESP 18; O2SAT 96
--- NOTE | 2020-03-26 22:21 | DI.CT.S_ITS ---
PROCEDURE: CT ABDOMEN PELVIS W CON INDICATIONS: severe abdominal pain with vomiting TECHNIQUE: After the administration of intravenous contrast, 5 mm thick sections acquired from the diaphragm to the symphysis. 5 mm coronal and sagittal reformats were acquired. For radiation dose reduction, the following was used: automated exposure control, adjustment of mA and/or kV according to patient size. COMPARISON: [facility], CR, XR CHEST 1 VIEW, 12/25/2019, 7:22. FINDINGS: Image quality: Excellent. ABDOMEN: Lung bases: Minimal bibasilar atelectasis. Cardiomegaly with left ventricular enlargement. Coronary artery calcifications. Pacemaker. Solid organs: Liver is normal in size and enhancement. Gallbladder contains large calcified gallstones. No gallbladder wall thickening or fluid around the gallbladder.. Biliary system is non dilated. Pancreas enhances normally. Spleen is normal in size and enhancement. No adrenal nodules. Kidneys demonstrate normal size and enhancement, without hydronephrosis. Peritoneum and bowel: There is a very large fecal impaction. Nonobstructed stool containing sigmoid colon is present and a large left inguinal hernia. No evidence of bowel obstruction. No bowel wall thickening. No free air or free fluid or abscess cavity. Duodenal diverticulum. Nodes and vessels: No retroperitoneal or mesenteric adenopathy by size criteria. Surgical size infrarenal abdominal aortic aneurysm measuring 6.8 x 6.0 cm. No evidence of rupture. Long neck between the lowest renal artery and the aneurysm. SMA, celiac, KORI, and renal arteries are patent. Inferior vena cava is unremarkable. Miscellaneous: No ventral hernias. PELVIS: Genitourinary: Bladder wall thickness is normal. Ach diverticulum on the left at the base of the bladder. Miscellaneous: No inguinal hernias or adenopathy. Bones: No suspicious bony lesions. No vertebral body compression fractures. IMPRESSION: 1. Very large rectal fecal impaction. 2. Large left inguinal hernia containing nonobstructed sigmoid colon. 3. Surgical sized abdominal aortic aneurysm measuring 6.8 x 6.0 cm. 4. Cardiomegaly with left ventricular enlargement. Coronary artery disease. 5. Cholelithiasis. Dictated by: Dawson Edgar M.D. on 03/27/2020 at 8:39 Approved by: Dawson Edgar M.D. on 03/27/2020 at 8:47
[2020-03-26 22:41] VITALS: BP 145/68; PULSE 60; RESP 18; O2SAT 94
[2020-03-27 00:33] LABS: RBC Urine 0-1/HPF (0-5/HPF); WBC Urine 10-30/HPF (0-5/HPF)
[2020-03-27 00:34] LABS: Bacteria Urine Few (2-10); Culture Indicated Urine Specimen Cultured
[2020-03-27 01:30] VITALS: BP 133/66; PULSE 71; RESP 25; O2SAT 94
--- NOTE | 2020-03-27 02:00 | PC.NURSE ---
Fleets enema administered by RN, Pt received small amount before declining and pushing RN arms away stating he doesn't want anymore of it. Dr. broderick.
[2020-03-27 02:40] VITALS: BP 158/81; PULSE 72; RESP 23; O2SAT 99
[2020-03-27] MEDS: ONDANSETRON 4 MG ODT PREPACK 1 BOTTLE MISC (02:40)
--- NOTE | 2020-03-27 02:59 | PC.NURSE ---
PT ambulation trial passed, pt independently transferred out of bed and walked to wheelchair in hallway with RN and [facility] at side.
== END 2020-03-27 02:40 | disposition home or self-care (01) ==
PROVIDERS: Nurse Practitioner Family; Emergency Provider Emergency Medicine; PCP Family Medicine
DX: R11.2 Nausea with vomiting, unspecified (principal); K59.00 Constipation, unspecified; Z95.0 Presence of cardiac pacemaker; R10.9 Unspecified abdominal pain; F03.90 Unspecified dementia, unspecified severity, without behavioral disturbance, psychotic disturbance, mood disturbance, and anxiety
CPT/HCPCS: 36415; 74022; 74177; 80053; 81003; 81015; 82009; 82550; 82728; 82805; 83690; 83880; 84484; 85025; 86140; 87086; 96361; 96374; 96375; 99284; C9113; J2405; Q9967